=== PATIENT | female | born 1960 | race Hispanic/Latino ===

== ENCOUNTER 2021-03-13 12:54 | Outpatient (CLI) | payer BC, SELFPAY ==
--- NOTE | ~2021-03-13 | XR_ITS ---
XR shoulder RT min 2V 03/13/2021 13:33 Indication: Right shoulder pain Procedure: 4 views right shoulder Comparison: No prior studies for comparison. Findings: There is anatomic alignment. No fracture or traumatic malalignment. No significant soft tis smooth abnormality. No foreign bodies. Impression: 1: No significant bone or joint abnormality. Reviewed, dictated and finalized at location B. ER CONTROL ROOM OPERATOR Impression: 1: No significant bone or joint abnormality.
[2021-03-13 13:37] LABS: Add Urine Microscopic? NO; Appearance Urine Clear (Clear); Bilirubin Urine Negative (Negative); Blood Urine Negative (Negative); Color Urine Straw (Yellow); Glucose Urine UA Negative (Negative); Ketones Urine Negative (Negative); Leukocyte Esterase Ur Negative LEU/UL (Negative); Nitrate Urine Negative (Negative); Protein Urine Negative (Negative); Specific Grav Ur 1.005 (1.001-1.035); Urobilinogen Urine Negative mg/dL (<2.0)
== END 2021-03-13 12:55 | disposition home or self-care (01) ==
PROVIDERS: PCP Nurse Practitioner Family; Visit Provider Nurse Practitioner Family
DX: M25.512 Pain in left shoulder (principal); R32 Unspecified urinary incontinence; Z13.0 Encounter for screening for diseases of the blood and blood-forming organs and certain disorders involving the immune mechanism; Z13.1 Encounter for screening for diabetes mellitus; Z13.29 Encounter for screening for other suspected endocrine disorder; Z13.220 Encounter for screening for lipoid disorders
CPT/HCPCS: 73030; 81003

== ENCOUNTER 2021-06-03 08:46 | Outpatient (CLI) | payer BC, SELFPAY ==
--- NOTE | 2021-06-03 11:15 | NEURO_ITS ---
Impression: # Complains of paresthesia of lower extremities. # Normal nerve conduction study including F-waves. # Normal needle/EMG exam. # Clinical correlation recommended. Nerve Conduction Studies Anti Sensory Summary Table Stim Site NR Peak (ms) P-T Amp (?V) Site1 Site2 Delta-P (ms) Dist (cm) Adalberto (m/s) Left Sup Fibular Anti Sensory (Ant Lat Mall) 14 cm 3.0 20.2 14 cm Ant Lat Mall 3.0 16.0 53 Right Sup Fibular Anti Sensory (Ant Lat Mall) 14 cm 3.1 12.0 14 cm Ant Lat Mall 3.1 16.0 52 Left Sural Anti Sensory (Lat Mall) Calf 3.7 18.3 Calf Lat Mall 3.7 16.0 43 Right Sural Anti Sensory (Lat Mall) Calf 3.7 6.5 Calf Lat Mall 3.7 16.0 43 Motor Summary Table Stim Site NR Onset (ms) O-P Amp (mV) Site1 Site2 Delta-0 (ms) Dist (cm) Adalberto (m/s) Left Peroneal Motor (Vastus Med) Ankle 4.3 3.0 Popit Ankle 8.2 40.0 49 Popit 12.5 3.0 Right Peroneal Motor (Vastus Med) Ankle 4.1 3.6 Popit Ankle 7.8 39.0 50 Popit 11.9 3.3 Left Tibial Motor (Abd Clarke Brev) Ankle 4.8 4.5 Knee Ankle 8.3 40.0 48 Knee 13.1 3.4 Right Tibial Motor (Abd Clarke Brev) Ankle 4.5 9.4 Knee Ankle 8.7 41.0 47 Knee 13.2 6.6 F Wave Studies NR F-Lat (ms) L-R F-Lat (ms) Left Peroneal (Mrkrs) (EDB) 47.15 1.24 Right Peroneal (Mrkrs) (EDB) 45.91 1.24 Left Tibial (Mrkrs) (Abd Hallucis) 47.90 0.16 Right Tibial (Mrkrs) (Abd Hallucis) 47.74 0.16 EMG Side Muscle Nerve Root Ins Act Fibs Amp Dur Recrt Comment Right AntTibialis Dp Br Fibular L4-5 Nml Nml Nml Nml Nml Right Gastroc Tibial S1-2 Nml Nml Nml Nml Nml Right Fibularis Long Sup Br Fibular L5-S1 Nml Nml Nml Nml Nml Right Flex Dig Long Tibial L5-S2 Nml Nml Nml Nml Nml Right Ext Dig Brev Dp Br Fibular L5, S1 Nml Nml Nml Nml Nml Left AntTibialis Dp Br Fibular L4-5 Nml Nml Nml Nml Nml Left Gastroc Tibial S1-2 Nml Nml Nml Nml Nml Left Fibularis Long Sup Br Fibular L5-S1 Nml Nml Nml Nml Nml Left Flex Dig Long Tibial L5-S2 Nml Nml Nml Nml Nml Left Ext Dig Brev Dp Br Fibular L5, S1 Nml Nml Nml Nml Nml MTDD
== END 2021-06-03 08:47 | disposition home or self-care (01) ==
LOC: ANHNEURO 08:47
PROVIDERS: PCP Nurse Practitioner Family; Visit Provider Nurse Practitioner Family
DX: R20.2 Paresthesia of skin (principal)
CPT/HCPCS: 95886; 95910

== ENCOUNTER 2024-11-19 12:02 | Emergency (ER) | payer MEDICARE, MEDICAID, SELFPAY ==
[2024-11-19] VITALS (8 sets, daily range): BP systolic 157–221; BP diastolic 95–127; PULSE 70–84; RESP 12–16; TEMP 36.4; O2SAT 100
--- NOTE | ~2024-11-19 | XR_ITS ---
Examination: XR chest 2V Clinical History: chest pain, ELEVATED BP, Comparison: None Technique: PA and Lateral Findings: Cardiomediastinal silhouette normal size and configuration. Lungs clear. Hyperinflation. No acute bony abnormality. IMPRESSION: 1. No acute cardiopulmonary findings. Reviewed, dictated and finalized at location R.
--- NOTE | 2024-11-19 12:50 | ECG_ITS ---
Test Date: 2024-11-19 12:54:10 Measurements Intervals [place] Rate: 67 P: 57 NV: 154 QRS: -9 QRSD: 90 T: 36 QT: 389 QTc: 412 Interpretive Statements SINUS RHYTHM POSSIBLE LEFT ATRIAL ENLARGEMENT INCOMPLETE RIGHT BUNDLE BRANCH BLOCK BORDERLINE ECG No previous ECG available for comparison Electronically Signed On 11-19-2024 16:17:40 CDT by Waldo Stewart D.O.
[2024-11-19 13:07] LABS: Hematocrit 42.4 % (37.0-47.0); Hemoglobin 13.9 g/dL (12.0-15.0); Immature Granulocyte Percent A 0.0 % (0-0.5); Lymphocytes Absolute Auto 1.20 K/mm3 (0.9-3.2); Mean Corpuscular HGB Conc 32.8 g/dl (32-36); Mean Corpuscular Hemoglobin 31.7 pg (26-34); Mean Corpuscular Volume 96.6 fl (80-100); Nucleated Red Blood Cells Absolute Auto 0.000 K/mm3 (0.0-0.012); Nucleated Red Blood Cells Perc 0.0 % (0.0-0.2); Platelet Count Result 227 k/mm3 (150-375); Red Blood Count 4.39 M/mm3 (4.2-5.4); White Blood Count 3.2 K/mm3 (4.5-10.0)
--- OUTSIDE RECORDS SUMMARY | 2024-11-19 13:14 | XMS_ITS | Data Portability ---
Author Organization [facility] Cerrato SIBenito Vergara Address [address] [facility] [place] [place] [address] Assessment Encounter Date Assessment Date Assessment LastModified by Organization Details LastModified Time 11/19/2024 11/19/2024 --- Investigations/Di agnostic Tests: None Assessment / Plan 1. HYPERTENSIVE URGENCY/EMERGENCY Status:Acute, unstable, and high-risk condition. Patient presents with severely elevated blood pressure (210/122 mmHg) and associated end-organ symptoms including chest pain, shortness of breath, new-onset speech changes, and sensory changes with abdominal palpation. This represents a significant risk for stroke or other major adverse cardiovascular events. Summary:Patient is establishing care and found to have markedly elevated BP. Hx of HTN, non-adherent with lisinopril (stopped 8-10 years ago due to side effects). Exam notable for wheezing, an abnormal heart sound, strong abdominal pulsation, and tenderness. Abdominal palpation provoked neurological symptoms (tingling). Plan: - Strongly advised patient to go to the Emergency Room immediately for hypertensive urgency/emergency workup. Discussed risks, including stroke. - Wrote down hypertensive urgency and possible kidney infection for patient to provide to ER staff. - If patient declines ER, backup plan includes: - Labs to check thyroid function, kidney function, and liver function. - Referral to Cardiology for evaluation, including a heart ultrasound. - Order for an ultrasound of the abdominal arteries. 2. ABNORMAL HEART SOUNDS/CHEST PAIN Status:Chronic, unclear stability, high-risk problem. Patient reports chest pain at night and has an irregular heartbeat on exam. History of very high cholesterol. This is concerning for underlying cardiac pathology, including valvular disease or ischemic heart disease, exacerbated by severe hypertension. Summary:Patient reports chest pain at night and SOB with exertion. Exam reveals an irregular heartbeat. She had a normal heart ultrasound over a decade ago. Given her severe HTN and history of high cholesterol, this requires urgent evaluation. Plan: - Immediate ER evaluation is the primary recommendation to rule out acute cardiac events. - If patient declines, an urgent Cardiology referral is planned for an EKG and echocardiogram to evaluate the abnormal heart sounds and chest pain. 3. NOCTURIA/POSSIBLE KIDNEY INFECTION Status:Chronic, worsening problem of unclear complexity. Patient reports nocturia (3x/night) for nearly a year, along with urgency. Exam shows suprapubic tenderness and associated chills are reported. This is concerning for a chronic or sxjmk-ul-drylact urinary tract or kidney issue, which may be a cause or consequence of her severe hypertension. Summary:Ongoing nocturia for ~10 months. Now with suprapubic tenderness on exam and reports of chills. No burning reported. This is suspicious for a UTI or pyelonephritis. Plan: - Advised ER evaluation for workup, which would include urinalysis and kidney function tests. - If not going to ER, will order basic labs including kidney function tests. Health Maintenance - Colorectal Cancer Screening: due - Mammogram: due - Bone Density Scan: due - Immunizations: review and update at next visit - Hypertension: quality measure - blood pressure control. Plan: urgent evaluation and treatment initiation. - High Cholesterol: quality measure - statin therapy. Plan: address after acute issues stabilized. - Diabetes: quality measure - A1c check. Plan: order labs. - Medication list and allergies reviewed and updated TASK LIST 1. ER: Refer to ER for hypertensive urgency, possible kidney infection, and cardiac workup. 2. Cardiology: Place referral to Cardiology if patient declines ER. 3. Labs: Order for TSH, CMP, CBC, Lipids, Urinalysis if patient declines ER. 4. Imaging: Order for renal/retroperito keri ultrasound, abdominal aorta ultrasound, and echocardiogram if patient declines ER. My total encounter time was 50min for this new patient which was spent in the activities documented in the note. This includes time spent prior to the visit and after the visit in direct care of the patient including reviewing labs,all pertaining outside records seeing the patient, ordering labs, coordinating care and documenting in the records This time does not include time spent in any separately reportable services. Thus billing [id number] ( 45-59 minutes) [email or web address] Not available 11/19/2024 13:10:13 Plan of Treatment Reminders Order Date Submit Date Provider Last Modified By Organization Details Last Modified Time Details Appointments NEW PATIENT 30 2024 10:30A M Griselda Roque MD Not available Not available Not available Lab None recorded . Referral None recorded . Procedures None recorded . Surgeries None recorded . Imaging None recorded . Medication Orders None recorded . Patient TargetsNo targets recorded. Patient InstructionsNo instructions recorded. Reason for Referral None Reported. Problems Name Problem SNOMED Code Status Onset Date Resolution Date Notes Provider Name and Address Organization Details Recorded Time Hypertensive urgency 743916524 Active 2024 Griselda Roque MD Attn: Trinity dexter,[address] [place], [place], [address] [place] [address] 2, [facility] 5 12:45:01 Pyelonephritis 61476821 Active 2024 Griselda Roque MD Attn: Trinity dexter,[address] [place], [place], [address] [place] [address] 2, [facility] 5 12:45:08 Chest pain 70885330 Active 2024 Griselda Roque MD Attn: Trinity dexter,[address] [place], [place], [address] [place] [address] 2, [facility] 5 12:45:58 Dyspnea on exertion 71405661 Active 2024 Griselda Roque MD Attn: Trinity renteria,[address] [place], [place], [address] [place] [address] 2, [facility] 5 12:46:10 Problem Notes None recorded. Medical Equipment None Reported. Allergies No known drug allergies Vitals Date Recorded Body height Body mass index (BMI) Body weight Body temperature Heart rate Systolic And Diastolic Provider Name and Address Organization Details Last Updated DateTime 162.56 cm 19.9 kg/m2 84493.7 1 g 97.5 [degF] 63 /min 203/122 mm[Hg] Bettie Alexander MA [facility] 11:30:45 Social History Question Answer Notes LastModified by Organizat ion Details LastModified Time Tobacco Smoking Status Never Smoker Bettie Alexander MA [facility] [place] [facility] 11/19/2024 11:28:40 What Was The Date Of Your Most Recent Tobacco Screening? 11/19/2024 Information not available 11/19/2024 Sex: Female Functional Status Question Answer Note LastModified by Organization D etails LastModified Time Do you or have you ever used any other forms of tobacco or nicotine? No Information not available 11/19/2024 Mental Status None recorded. Family History Nothing Reported. Medical History No medical history recorded. Gynecological HistoryNo gynecological history recorded. Obstetrics History GPAL:G 0 P 0 0 0 0 Immunizations Vaccine Type Date Status Note Provider Nam e and Address Organization Details Recorded Time COVID-19 vaccine, vector-nr, rS-Ad26, PF, 0.5 mL 05/16/2020 completed Not Available [facility] 11:22:58 Past Encounters Encounter ID Performer Location Encounter Start Date Encounter Closed Date Diagnosis/Indication Diagnosis SNOMED-CT Code Diagnosis ICD10 Code Diagnosis IMO Codes Diagnosis Note [id number] MD Lynne Nieves FP ([address]) [address] [place] [address] 11/19/2024 11:18:47 11/19/2024 13:10:20 Hypertensive urgency 763301621 I16.0 1115545 Pyelonephritis 25346564 N12 63542 Chest pain 13362247 R07. 89 09946 Dyspnea on exertion 6084 5006 R06.09 456793 Health Concerns Section Related Observation LastModified by Organization Detai ls LastModified Time None Recorded Concern Status LastModified by Organization Details LastModified Time None Recorded Advance Directives Directive None Recorded Payers Insurance Date Sequence Insurance Name Policy Number Policy Savage Covered Member ID Savage Member ID Guarantor Name 11/19/2024 2 [place] Vicky Mckeon [id number] Vicky Mckeon 11/19/2024 1 [place] DEPARTMENT [place] PUBLIC AID Vicky Mckeon [id number] Vicky Mckeon 11/19/2024 1 [facility] [facility] PRIOR TO 09/14/2024 (MEDICAID REPLACEMENT - HMO) [id number] Vicky Mckeon [id number] Vicky Mckeon Notes Date Note Type Note Provider Name and Address Organization Details Recorded Time 5 text/html Background-Personal & LeisureBelieves there is only one race under one God. Identifies as Presybeterian. Actively tries to practice and promote this belief daily, which she feels is her duty.-Home/Family/Relati onshipsHas a daughter and her family in the area, including one grandchild.-Education/Fi nanceLifestyle-Diet and Exercise/Daily ActivitiesHad coffee and toast this morning.- Alcohol/Caffiene/Substan ce Use/HabitsHad 10 ounces of coffee before the appointment. Denies history of smoking or marijuana use.History of Presenting Illness:Patient is a female here for establishing care. Main concerns are markedly elevated blood pressure and related symptoms.HYPERTENSIONNori shields has a history of high blood pressure and was previously on medication (lisinopril) about 8-10 years ago. She stopped the medication because it made her feel fuzzy and zoned out. She reports a history of stress at that time. She owns a home blood pressure machine but has not used it in a while. When she did use it, readings were around 125/79. She had 10 oz of coffee prior to today's visit. Today's BP readings were extremely high (210/122 and 200/118). She reports occasional dull headaches that resolve.NOCTURIAReports urinating 3 times per night. This has been ongoing for about 10 months to a year. Reports urinary urgency but no burning. She has chills, especially in the left leg at night.CHEST PAINReports chest pain, especially at night. Denies chest pain with exertion like going up stairs.SHORTNESS OF BREATHReports some shortness of breath when going up one flight of stairs.OTHER SYMPTOMSReports increased puffiness under her eyes for the last 6 months. Notes a tingling sensation in her left hand and left ear during the abdominal exam. Reports some speech changes with stammering, which is new for her. Reports some noise on the right side and hears it on the left. Reports left-sided back pain.History obtained via Chart Review:Prior Office Visits:None on record. New patient.Prior Pertinent Chart Info/Hospitalizations- History of high cholesterol.- Had a heart ultrasound over a decade ago, reportedly with no abnormalities found.PMH, PSH, MEDS, ALLERGIES, SH, and FH - Information reviewed with patient and in EMR, with changes made where appropriate.. Griselda Roque MD Attn: Accounting,[address] [place], [address], [facility] 11/19/2024 13:10:47 OBGyn Episode No OBEpisode recorded.
--- OUTSIDE RECORDS SUMMARY | 2024-11-19 13:14 | XMS_ITS | Continuity of Care Document ---
Author Organization [facility] - SINikko TOLBERT ([address]) Address [address] [place] [address] Assessment Encounter Date Assessment Date Assessment LastModified [...] This is concerning for a chronic or fpegg-lo-zhktkku urinary tract or kidney issue, which may [...] in any separately reportable services. Thus billing [id number] ( 45-59 minutes) [email or web address] Not available 11/19/2024 [...] Address Organization Details Recorded Time Hypertensive urgency 055974144 Active 2024 Griselda Roque MD Attn: Trinity renteria,[address] [place], [place], [address] [place] [address] 2, [facility] SI 12:45:01 Pyelonephritis 35894041 Active 2024 Griselda Roque MD Attn: Trinity renteria,[address] [place], [place], [address] [place] [address] 2, [facility] 5 12:45:08 Chest pain 80481643 Active 2024 Griselda Roque MD Attn: Trinity renteria,[address] [place], [place], [address] [place] [address] 2, [facility] 5 12:45:58 Dyspnea on exertion 10460269 Active 2024 Griselda Roque MD Attn: Trinity renteria,[address] [place], [address], [facility] 12:46:10 Problem Notes None recorded. Medical Equipment None Reported. Allergies No known drug allergies Vitals Date Recorded Body height Body mass index (BMI) Body weight Body temperature Heart rate Systolic And Diastolic Provider Name and Address Organization Details Last Updated DateTime 162.56 cm 19.9 kg/m2 12325.7 1 g 97.5 [degF] 63 /min 203/122 mm[Hg] Bettie Alexander MA [place] - [facility] 11:30:45 Social History Question Answer Notes LastModified by Organizat ion Details LastModified Time Tobacco Smoking Status Never Smoker Bettie Alexander MA [facility] [place] [facility] 11/19/2024 11:28:40 What Was The Date Of [...] PF, 0.5 mL 05/16/2020 completed Not Available [facility] 11:22:58 Past Encounters Encounter ID Performer Location Encounter Start Date Encounter Closed Date Diagnosis/Indication Diagnosis SNOMED-CT Code Diagnosis ICD10 Code Diagnosis IMO Codes Diagnosis Note [id number] MD Lynne Nieves FP ([address]) [address] [place] [address] 11/19/2024 11:18:47 11/19/2024 13:10:20 Hypertensive urgency 949331585 I16.0 7731445 Pyelonephritis 16347428 N12 07128 Chest pain 79474072 R07. 89 04980 Dyspnea on exertion 6084 5006 R06.09 265813 Health Concerns Section Related Observation LastModified by Organization Detai ls LastModified Time None Recorded Concern Status LastModified by Organization Details LastModified Time None Recorded Payers Encounter Date Sequence Insurance Name Policy Number Policy Savage Covered Member ID Savage Member ID Guarantor Name 11/19/2024 1 [place]: [place] DEPARTMENT OF PUBLIC AID Vicky Mckeon [id number] Vicky Mckeno 11/19/2024 2 [place] Vicky Mckeon [id number] Vicky Mckeon Notes Date Note Type Note Provider Name and Address Organization Details Recorded Time 10/06/202 5 text/html Background-Personal & LeisureBelieves there is only one race under one God. Identifies as Scientology. Actively tries to practice and promote this [...] appropriate.. Griselda Roque MD Attn: Accounting,[address] [facility], [place], [address], [facility] 11/19/2024 13:10:47 OBGyn Episode No OBEpisode recorded.
[2024-11-19 13:18] LABS: INR 0.9; Prothrombin Time 12.7 Seconds (11.1-14.7)
[2024-11-19 13:19] LABS: Partial Thromboplastin Time 35.6 Seconds (22.3-36.8)
[2024-11-19 13:25] LABS: Alanine Aminotransferase 21 U/L (6-35); Albumin Level 4.4 g/dL (3.5-5.1); Alkaline Phosphatase 84 U/L (38-126); Anion Gap 7 mmol/L (4-12); Aspartate Amino Transferase 33 U/L (14-36); Bilirubin,Total 0.6 mg/dL (0.2-1.3); Blood Urea Nitrogen 10 mg/dL (7-17); Calcium 9.1 mg/dL (8.4-10.2); Carbon Dioxide 26 mmol/L (22-30); Chloride 106 mmol/L (98-107); Estimated CRCL calculation 51 ml/min; Estimated Glomerular Filt Rate > 60; Glucose 88 mg/dL (65-110); Lipase 76 U/L (23-300); Potassium 3.8 mmol/L (3.4-5.0); Sodium 139 mmol/L (137-145); Total Protein 8.5 g/dL (6.3-8.2)
[2024-11-19 13:32] LABS: Troponin I < 0.012 ng/mL (0.000-0.034)
[2024-11-19] MEDS: ASPIRIN 81 MG CHEWABLE TABLET 324 MG PO (13:42)
--- OUTSIDE RECORDS SUMMARY | 2024-11-19 14:53 | XMS_ITS | Data Portability ---
Author Organization [facility] [employer], Main Office Address [address] [place] [address] Assessment No assessment recorded. Plan of Treatment Reminders Order Date Submit Date Provider Last Modified By Organization Details Last Modified Time Details Appointments None recorded. Lab urinalysis, dipstick 2022 023 [facility] [address], [place], [address], 3 10:07:51 Referral physical therapist referral - *Please call pt to schedule* 2022 023 [email or web address] 256 [facility], [address], [place], [address], 4 08:48:42 Procedures None recorded. Surgeries None recorded. Imaging CT, abdomen + pelvis, w/o contrast - abdominal pain/left plank pain *Please call pt to schedule* 2023 024 [facility] (Imaging), [address] [place], [address], 4 14:04:17 MRI, thoracolumb ar spine, w/o contrast - *Please call pt to schedule* 2022 023 [email or web address] 256 [facility], [address] [place] [address] , [place], [address], 4 09:26:54 Medication Orders None recorded. Patient TargetsNo targets recorded. Patient InstructionsNo instructions recorded. Reason for Referral Physical Therapist Referral for Chronic low back pain thoracic, lumbar pain *Please call pt to schedule* Referring Physician: Samson Baltazar, Family Medicine, Encounter Date: 02/11/2023 Results Created Date Observation Date Name Description Value Unit Range Abnormal Flag Note LastModifiedBy Organization Detail LastModifiedTime 04/08/19 24 04/08/2023 urina lysis , dipst ick Leukocytes (reference range: negative deanna/ l) Negati ve Not Available [address], [place], [address], 02/11/2023 09:53:09 04/08/19 24 04/08/2023 urina lysis , dipst ick Nitrite (reference rage: negative mg/dl) negati ve Not Available [address], [place], [address], 02/11/2023 09:53:09 04/08/19 24 04/08/2023 urina lysis , dipst ick Urobilinogen (reference range: 0.2-1 mg/dl) 0.2 Not Available [address], [place], [address], 02/11/2023 09:53:09 04/08/19 24 04/08/2023 urina lysis , dipst ick Protein (reference range: negative mg/dl) Negati ve Not Available [address], [place], [address], 02/11/2023 09:53:09 04/08/19 24 04/08/2023 urina lysis , dipst ick pH (reference range: 5-7) 7.5 Not Available [address], [place], [address], 02/11/2023 09:53:09 04/08/19 24 04/08/2023 urina lysis , dipst ick Blood (reference range: negative Joshua/ l) Negati ve Not Available [address], [place], [address], 02/11/2023 09:53:09 04/08/19 24 04/08/2023 urina lysis , dipst ick Specific [place] (reference range: 1.005-1.030) 1.020 Not Available [address], [place], [address], 02/11/2023 09:53:09 04/08/19 24 04/08/2023 urina lysis , dipst ick Ketone (reference range: negative mg/dl) Negati ve Not Available [address], [place], [address], 02/11/2023 09:53:09 04/08/19 24 04/08/2023 urina lysis , dipst ick Bilirubin (reference range: negative mg/dl) Negati ve Not Available [address], [place], [address], 02/11/2023 09:53:09 04/08/19 24 04/08/2023 urina lysis , dipst ick Glucose (reference range: negative mg/dl) Negati ve Not Available [address], [place], [address], 02/11/2023 09:53:09 04/08/19 24 04/08/2023 urina lysis , dipst ick Appearance Clear Not Available [address], [place], [address], 02/11/2023 09:53:09 04/08/19 24 04/08/2023 urina lysis , dipst ick Color Yellow Not Available [address], [place], [address], 02/11/2023 09:53:09 04/03/19 22 04/03/2021 US, pelvi s, trans abdom inal + trans vagin al [facility] [address] [place] [address] [facility] Name: JASWANT MCKEON Access ion #: [id number] Sex: F : 1960 3 9 Locati on: Attend ing Physic mat: ALEXUS MARCANO Orderi ng Physic mat: ALEXUS MARCANO Exam Date: 12:10 PM Exam Name: US PELVIS NON OB TRANSV AGINAL Admitt ing Diagno sis(es ): RADIOL OGY REPORT - FINAL EXAM: US PELVIS NON OB TRANSV AGINAL HISTOR Y: pelvic pain COMPAR RANI: None availa ble. TECHNI QUE: Transv aginal and transa bdomin al pelvic ultras ound was perfor med. FINDIN GS: Uterus : The uterus measur es 5.4 x 3.2 x 3.8 cm. The myomet rial echo appear ance ismild ly inhomo genous . The endome trium measur es 0.93 mm in thickn ess. Right ovary: The right ovary is not visual ized correl ate with surgic al histor y, the uterus may be the displa cing the ovary from the field of view, Page 1 of 2 [facility] JASWANT MCKEON Access ion #: [id number] Sex: F : 1960 3 9 Exam Date: 12:10 PM Exam Name: US PELVIS NON OB TRANSV AGINAL Admitt ing Diagno sis(es ): this area may be obscur ed by bowel gas. Left ovary: The left ovary measur es 1.5 x 0.8 x 0.7 cm. The left ovary demons trates a 0.54 x 0.59 x 0.55 cm simple cyst is otherw ise normal in appear ance and demons trates normal color Dopple r blood flow. Cul-de -sac: No free fluid. IMPRES RICKI: See above. Create d and electr onical ly signed by: Shay leigh MD Signed Date: 2:55 PM (CT) Dictat ed by: Shay leigh MD DD: 2:55 PM (CT) DT: 2:55 PM (CT) Page 2 of 2 [id number] [facility] (Imaging) [address] [place], [address], 04/15/2022 00:29:29 04/03/19 22 04/03/2021 DEXA, axial skele ton [facility] [address] [facility] [address], [place] [address] Patien t Name: JASWANT MCKEON Access ion #: [id number] Sex: F : 1960 3 9 Locati on: MOP Attend ing Physic mat: ALEXUS [facility]ARCANO [facility]: ALEXUS MARCANO Exam Date: 1:09 PM Exam Name: XR DEXA-H IPS PELVIS SPINE Admitt ing Diagno sis(es ): RADIOL OGY REPORT - FINAL EXAM: XR DEXA-H IPS PELVIS SPINE HISTOR Y: OSTEOP OROSIS COMPAR RANI: None. TECHNI QUE: TECHNI QUE: Dual energy x-ray of absorp tion examin ation of the bilate ral hips and lumbar spine in AP projec tion was perfor med. FINDIN GS: Lumbar Spine (L1-L4 ): The mean bone minera l densit y is 0.981 g/cm2 hydrox yapati te, correl ating with a T-scor e of -1.7. Bilate ral hips: The mean bone minera l densit y is 0.702 g/cm2 calciu m hydrox yapati te, correl ating with a T-scor e of -2.4. Page 1 of 2 [facility] Mamta t Name: JASWANT MCKEON Access ion #: [id number] Sex: F : 1960 3 9 Exam Date: 1:09 PM Exam Name: XR DEXA-H IPS PELVIS SPINE Admitt ing Diagno sis(es ): IMPRES RICKI: 1. The patien t's lumbar spine T-scor e is consis tent with osteop enia. 2. The patien t's bilate ral hip T-scor e is consis tent with severe osteop enia. Accord ing to the World Health Organi zation , T-scor e values greate r than -1.0 are normal , values betwee n -1.0 and -2.5 are catego rized as osteop enia, T-scor e of -2.5 or more are catego rized as osteop orosis . Create d and electr onical ly signed by: Shay leigh MD Signed Date: 3:34 PM (CT) Dictat ed by: Shay liegh MD DD: 3:34 PM (CT) DT: 3:34 PM (CT) Page 2 of 2 [id number] [facility] (Imaging) [address] [place], [address], 04/15/2022 00:29:29 04/03/19 22 04/03/2021 scree arun breas t jessica, bilat [facility] [address] [place] [address] Mamta beckman Name: JASWANT MCKEON Access ion #: [id number] Sex: F : 1960 3 9 Locati on: MOP Attend ing Physic mat: ALEXUS MARCANO Orderi Physic mat: ALEXUS MARCANO Exam Date: 1:09 PM Exam Name: MG SCRN BREAST JESSICA BILAT Admitt ing Diagno sis(es ): MAMMOG ZOHRA REPORT - FINAL EXAM: SCRN BREAST JESSICA BILAT HISTOR Y: SCREEN ING mammog tayo. COMPAR RANI: Baseli ne. TECHNI QUE: Bilate ral CC and MLO views of the breast s were perfor med. Digita l Mammog zohra images were obtain ed. CAD (compu ter assist ed detect ion) was utiliz ed. 3D Digita l breast tomosy nthesi s was perfor med and used in the interp retati on of images . FINDIN GS: The breast s are extrem tiffanie dense, which lowers the sensit ivity of mammog zohra. No masses , asymme tries, suspic ious calcif icatio ns, or bryan ectura l Page 1 of 2 [facility] Mamta beckman Name: JASWANT MCKEON Access ion #: [id number] Sex: F : 1960 3 9 Exam Date: 022 1:09 PM Exam Name: MG RAIN BREAST JESSICA BILAT Admitt ing Diagno sis(es ): distor tion are seen. IMPRES RICKI: BIRADS 1: Assess ment comple te. Negati ve. Recomm end annual screen ing mammog zohra. Accord ing to the [employer] o[employer], yearly mammog julia are recomm ended starti ng at age 40 and contin uing as long as the woman is in good health . Clinic al Breast Exam should be part of the period health exam-a bout every 3 years for women in their 20s and 30s and every year for women 40 and over. Breast self-e xam is an option for women in their 20s. Any breast change noted on the breast self-e xam she would be report ed prompt ly to the [facility]. A negati ve mammog zohra report should not discou rage follow -up or biopsy of a clinic ally signif icant findin g and/or abnorm ality. Dense breast tissue may obscur e small neopla sms. This mamta beckman has been entere d into a mammog zohra remind er system with a target date for her next mammog tayo. Create d and electr onical ly signed by: Shay leigh MD Signed Date: 4:17 PM (CT) Dictat ed by: Shay leigh MD DD: 4:17 PM (CT) DT: 4:17 PM (CT) Page 2 of 2 [id number] [facility] (Imaging) [address] [place], [address], 04/15/2022 00:29:29 04/03/19 22 04/03/2021 US, abdom en + pelvi s [facility] [address] [facility] [place] [address] [phone] Patien t Name: REJI MCKEONBOLIVAR Norton Access ion #: [id number] Sex: F : 1960 3 9 Locati on: Attend ing Physic mat: ALEXUS MARCANO LE Orderi Physic mat: ALEXUS MARCANO Exam Date: 12:09 PM Exam Name: US ABDOME N MULTIP LE ORGANS Admitt ing Diagno sis(es ): RADIOL OGY REPORT - FINAL EXAM: US ABDOME N MULTIP LE ORGANS HISTOR Y: abd pain COMPAR RANI: None. TECHNI QUE: Comple te abdomi nal ultras ound was perfor med. FINDIN GS: No gallst ones, gallbl adder wall thicke arun, or perich olecys tic free fluid. The gallbl adder wall dimens ions by 1.7 mm, normal . The patien t was not tender to transd ucer pressu re over the gallbl adder. No intrah epatic biliar y ductal dilata tion or liver mass. Page 1 of 2 [facility] Patien t Name: REJI MCKEONBOLIVAR John Access ion #: [id number] Sex: F : 1960 3 9 Exam Date: 12:09 PM Exam Name: US ABDOME N MULTIP LE ORGANS Admitt ing Diagno sis(es ): There is hepato petal portal venous color Dopple r flow. The common duct measur es 1.2mm in diamet er. The partia lly visual ized pancre as is unrema rkable . The intrah epatic portio n of the IVC is patent . No upper abdomi nal aortic ectasi a. The right kidney measur es 9.9 x 4.3 x 4.5 cm in length and is normal in appear ance. The left kidney measur es 9.8 x 5.2 x 3.9 cm in length and is normal in appear ance. The spleen is normal in size. IMPRES RICKI: Unrema rkable abdomi nal ultras ound. Create d and electr onical ly signed by: Sahy leigh MD Signed Date: 2:53 PM (CT) Dictat ed by: Shay leigh MD DD: 2:53 PM (CT) DT: 2:53 PM (CT) Page 2 of 2 [id number] [facility] (Imaging) [address] [place], [address], 04/15/2022 00:29:29 04/18/19 22 04/03/2021 US, duple x, arter ial, lower extre mity No observ ation record ed. [id number] [facility] [address] [place], [address], 04/15/2022 00:29:29 06/05/19 22 06/03/2021 nerve condu ction study /EMG, lower extre mity (PROC ) No observ ation record ed. [id number] [address] [place], [place], [address], 04/15/2022 00:29:29 05/13/19 24 05/13/2023 CT, abdom en + pelvi s, w/o contr ast No observ ation record ed. [email or web address] [facility] [address] [place], [address], 05/17/2023 14:51:16 Result Notes None recorded. Problems Name Problem SNOMED Code Status Onset Date Resolution Date Notes Provider Name and Address Organization Details Recorded Time Pain of right shoulder joint 3961438146201 9100 Active 2021 Not Available [facility] 3 00:28:07 Urinary incontinen ce 690150069 Active 2021 Not Available [facility] 3 00:28:07 Abdominal pain 21998647 Active 2021 Not Available [facility] 3 00:28:07 Essential hypertensi on 26019388 Active 2021 Not Available [facility] 3 00:28:07 Vitamin D deficiency 77103092 Active 2021 Not Available [facility] 3 00:28:07 Hyperlipid emia 07835029 Active 2021 Not Available [facility] 3 00:28:07 Low back pain 434617006 Active 2022 Samson Baltazar [employer] [employer] [facility] [address], [place], [address] , [facility] 3 09:44:25 Chronic low back pain 387503870 Active 2022 MEJIA [facility] [address], [address], [place], [address] , [facility] 3 09:44:41 Left flank pain 955426157 Active 2023 Samson Baltazar [facility] [employer] [address], [address], [place], [address] , [facility] 4 10:19:17 Problem Notes None recorded. Medical Equipment None Reported. Allergies No known drug allergies Medications Name Sig Start Date Stop Date Status Note LastModified by Organization Details LastModified Time losartan 50 mg tablet TAKE 1 TABLET BY MOUTH ONCE DAILY 07/21 completed Increased to 100 mg on 06/10/21 Not Available Not Available Not Available lisinopri l 20 mg tablet Take 1 tablet every day by oral route. active Not Available Not Available No t Available amlodipin e 5 mg tablet Take 1 tablet every day by oral route. 02/11 completed Not Available Not Available Not Available losartan 100 mg tablet TAKE 1 TABLET BY MOUTH ONCE DAILY 02/11 completed Not Available Not Available Not Available rosuvasta tin 5 mg tablet TAKE 1 TABLET BY MOUTH ONCE DAILY 02/11 completed Not Available Not Available Not Available Vitals Date Recorded Body mass index (BMI) Body height Oxygen saturation Oxygen saturation in Arterial blood by Pulse oximetry Heart rate Body temperature Body weight Systolic And Diastolic Provider Name and Address Organization Details Last Updated DateTime 2 20.1 kg/m2 163.83 cm 98 % 98 % 73 /min 97.6 [degF] 31766.4 9 g 142/100 mm[Hg] Not Available [facility] 3 00:27:48 Date Recorded Body height Body mass index (BMI) Body weight Body temperature Heart rate Oxygen saturation Oxygen saturation in Arterial blood by Pulse oximetry Systolic And Diastolic Provider Name and Address Organization Details Last Updated DateTime 4 163.83 cm 20.4 kg/m2 92606.6 8 g 99.3 [degF] 75 /min 100 % 100 % 156/100 mm[Hg] Halle Castro RN [place] - [facility] [place] [facility] [facility] 4 10:09:24 Date Recorded Body mass index (BMI) Body height Oxygen saturation Oxygen saturation in Arterial blood by Pulse oximetry Heart rate Body temperature Body weight Systolic And Diastolic Provider Name and Address Organization Details Last Updated DateTime 2 20.4 kg/m2 163.83 cm 97 % 97 % 69 /min 97.6 [degF] 61990.6 8 g 140/90 mm[Hg] Not Available [facility] 3 00:27:48 Date Recorded Body height Systolic And Diastolic Provider Name and Address Organization Details Last Updated DateTime 07/21/2021 163.83 cm 180/100 mm[Hg] Not Available [facility] 04/15/2022 00:27:48 Date Recorded Body weight Body mass index (BMI) Body height Body temperature Heart rate Oxygen saturation Oxygen saturation in Arterial blood by Pulse oximetry Systolic And Diastolic Provider Name and Address Organization Details Last Updated DateTime 3 44646.9 g 19.9 kg/m2 163.83 cm 97.4 [degF] 82 /min 98 % 98 % 168/100 mm[Hg] Lazara de los santos CMA [place] - [facility] 3 09:38:20 Social History Question Answer Notes LastModified by Organizat ion Details LastModified Time Tobacco Smoking Status Never Smoker Not Available [facility] 04/15/2022 00:26:59 Do You Wear A Helmet When Biking? No [id number] Information not available 04/15/2022 What Is Your Level Of Caffeine Consumption? Moderate [id number].[id number] 026 Information not available 04/15/2022 What Type Of Diet Are You Following? REGULAR [id number].[id number] 026 Information not available 04/15/2022 What Is The Highest Grade Or Level Of School You Have Completed Or The Highest Degree You Have Received? [id number] [id number].[id number] 026 Information not available 04/15/2022 Have There Been Any Changes To Your Family Or Social Situation? No [id number] 026 Information not available 04/15/2022 Where Do You Live? Apartment [id number] 026 Information not available 04/15/2022 Do You Have Any Pets? Yes [id number] 026 Information not available 04/15/2022 What Is Your Relationship Status? [id number] 026 Information not available 04/15/2022 Do You Use Your Seat Belt Or Car Seat Routinely? Yes [id number].[id number] 026 Information not available 04/15/2022 Do You Have Smoke And Carbon Monoxide Detectors In Your Home? Yes [id number].0964634 026 Information not available 04/15/2022 Are You Passively Exposed To Smoke? No MIGRATION.4919087 026 Information not available 04/15/2022 Are There Any Smokers In Your House? No MIGRATION.3263126 026 Information not available 04/15/2022 Do You Participate In Social Media? No [id number].3013033 026 Information not available 04/15/2022 Are You Currently In School? No [id number].[id number] 026 Information not available 04/15/2022 Do You Have Any Dietary Restrictions? No MIGRATION.0077804 026 Information not available 04/15/2022 Sex: Unknown Functional Status Question Answer Note LastModified by Organizat ion Details LastModified Time What is your level of alcohol consumption? None [id number] 26 Information not available 04/15/2022 What is your exercise level? Occasional [id number].[id number] 26 Information not available 04/15/2022 Mental Status Question Answer Note LastModified by Organizat ion Details LastModified Time Do you feel stressed (tense, restless, nervous, or anxious, or unable to sleep at night)? [id number] 6 Information not available 04/15/2022 Family History Relationship Description Onset Age of this Age Resolved Age Notes LastModified by Organization Details LastModified Time Father Heart disease and his 8 siblin gs [id number] Not available 04/15/2022 00:27:14 Maternal Grandmother Type 2 diabetes mellitus [id number] [id number] Not available 04/15/2022 00:27:14 Sister Type 2 diabetes mellitus [id number].264 [id number] Not available 04/15/2022 00:27:14 Sister Hypertensive disorder [id number] Not available 04/15/2022 00:27:14 Medical History Condition Response HEADACHES/MIGRAINES Y BLADDER PROBLEMS Y MUSCLE,JOINT OR BONE PROBLEMS Y HYPERTENSION Y Gynecological History Statement/Question Response Date of Last Colonoscopy Obstetrics History GPAL:G 3 P 3 0 0 3 Type Value Full Term 3 Living 3 Total 3 Past Encounters Encounter ID Performer Location Encounter Start Date Encounter Closed Date Diagnosis/Indication Diagnosis SNOMED-CT Code Diagnosis ICD10 Code Diagnosis IMO Codes Diagnosis Note [id number] Quan Bello MD [address] [address] 03/04/2021 00:00:00 03/04/2021 10:00:05 [id number] Quan Bello MD [facility] [address] [place] [address] 03/06/2021 00:00:00 03/06/2021 13:06:08 [id number] Quan Bello MD [address] [address] 03/20/2021 00:00:00 03/20/2021 12:02:13 [id number] Quan Bello MD [facility] [address] [place] [address] 04/17/2021 00:00:00 04/17/2021 12:54:39 [id number] Quan Bello MD [facility] [address] [place] [address] 06/10/2021 00:00:00 06/10/2021 15:32:21 [id number] Quan Bello MD [facility] [address] [place] [address] 07/21/2021 00:00:00 07/21/2021 18:36:[id number] Primary Care [facility] [address] [place] [address] 02/11/2023 09:29:27 02/11/2023 10:15:28 Chronic low back pain 117757963 M54.50 -has been an issue for approx 2 years-pain rated at 8/10 on average, constant-d oes not take any medication s for the pain-start ing to affect her sleep-ROM and strength are intact with pain-numbn ess and tingling noted to tadeo toes and below knees at times-note s some issues with urination (urgency), notes clear urine at times, oily/foamy at other times, no blood-note s dexa scan showed osteopenia -ruling out muscle strain vs kidney stone [id number] Sangita Alvarez MD [facility] [address] [facility] [place] [address] 04/29/2023 09:51:23 04/29/2023 12:57:11 Left flank pain 897099784 R10.9 -notes pain to left flank every day, started off in her left abdomen and later radiated-n otes occasional sharp pains that cause her to pause-no hx of kidney stones-no blood noted in recent UA-CT ordered Health Concerns Section Related Observation LastModified by Organization Lissy sadler LastModified Time None Recorded Concern Status LastModified by Organization Details LastModified Time None Recorded Advance Directives Directive None Recorded Payers Insurance Date Sequence Insurance Name Policy Number Policy Savage Covered Member ID Savage Member ID Guarantor Name 04/28/2023 1 [facility] PRIOR TO 09/14/2024 (MEDICAID REPLACEMENT - HMO) [id number] Vicky Mckeon [id number] Vicky Mckeon Notes Date Note Type Note Provider Name and Address Organization Details Recorded Time 02/11/2023 text/html Pt is a new patient looking to discuss back pain [facility]ENEDICT [facility] [address], [place], [address], As Seen on TV 02/11/2023 10:07:35 04/29/2023 text/html Pt is here for abd/flank pain MEJIA [facility] [address], [place], [address], [facility] 04/29/2023 12:55:14 OBGyn Episode No OBEpisode recorded.
--- NOTE | 2024-11-19 15:46 | ECG_ITS ---
Test Date: 2024-11-19 16:49:51 Measurements Intervals [place] Rate: 75 P: 62 [place]: 152 QRS: 12 QRSD: 97 T: 38 QT: 386 QTc: 433 Interpretive Statements SINUS RHYTHM POSSIBLE LEFT ATRIAL ENLARGEMENT INCOMPLETE RIGHT BUNDLE BRANCH BLOCK BORDERLINE ECG Compared to ECG 11/19/2024 12:54:10 NO SIGNIFICANT CHANGE Electronically Signed On 11-19-2024 19:24:11 CDT by Waldo Stewart D.O.
[2024-11-19 16:17] LABS: Troponin I < 0.012 ng/mL (0.000-0.034)
--- NOTE | 2024-11-19 17:38 | ED_ITS ---
HPI - Chest Pain General Chief Complaint: Chest Pain Stated Complaint: Elevated BP - urinary frequency-sent by PMD Time Seen by Provider: 11/19/24 12:45 Source: patient Mode of arrival: ambulatory Limitations: no limitations History of Present Illness HPI narrative: 64-year-old with a history of hypertension presents to the ER with a complains of midsternal chest pain which is been ongoing since last couple days. Patient saw her primary doctor earlier this morning and was later referred to the ER because of the high blood pressure. Patient is presently not on any medication. She denies any headache or blurred vision or shortness of breath. complaint: chest pain Onset (ago): day(s) Timing of current episode: constant Prior episodes: No Onset: during rest Pain location: substernal Pain radiation: none Risk Factors Coronary artery disease risk factors: none Thoracic aortic dissection risk factors: none Related Data Home Medications ?Medication ?Instructions ?Recorded ?Confirmed ?Last Taken ?Type losartan 100 mg tablet 100 mg PO DAILY 07/10/21 Un known History amlodipine 5 mg tablet 5 mg PO DAILY 07/22/21 Unkn own History Allergies Allergy/AdvReac Type Severity Reaction Status Date / Time No Known Allergies Allergy Verified 11/19/24 12:04 Review of Systems 2 Review of Systems: All systems reviewed & are unremarkable except as noted in HPI and below ROS unobtainable: Yes unobtainable due to endotracheal tube Eyes: Eyes: Reports no additional eye complaints ENT: Reports system reviewed and no additional complaints, except as documented Cardiovascular: Cardiovascular: Reports no additional cardiovascular complaints Respiratory: Respiratory: Reports no additional respiratory complaints Gastrointestinal: Gastrointestinal: Reports no additional gastrointestinal complaints Musculoskeletal: Musculoskeletal: Reports no additional musculoskeletal complaints PMFSH Past Medical History Medical History Abdominal pain Essential hypertension Hyperlipidemia Other specified polyneuropathies Pain in right shoulder Small fiber neuropathy Urinary incontinence Vitamin D deficiency Family History Family History Father Heart disease along with his 8 siblings Diabetes mellitus Grandparent Diabetes mellitus Sibling Diabetes mellitus Hypertension Social History Social History Social History: never smoker Smoking status: Never smoker Alcohol intake: never Exam 2 Narrative: GENERAL: Well-appearing, well-nourished, and in no acute distress. HEAD: Normocephalic, atraumatic. EYES: PERRLA and EOMI. ENT: Nares clear, no rhinorrhea or epistaxis. Mucous membranes moist. NECK: Supple. CHEST: Clear to auscultation. No respiratory distress. HEART: Regular rate and rhythm. No murmur heard. Normal peripheral pulses. ABDOMEN: Soft, nontender, nondistended, normal active bowel sounds. EXTREMITIES: Normal range of motion. No edema. SKIN: Warm, dry, no rash. NEURO: No focal deficits. Alert and oriented x3. PSYCH: Normal mood and affect. Course Course Emergency Course: Patient upon arrival had of very high blood pressure of 221/127 I did give her 10 mg of IV hydralazine which improved. I discussed lab work, EKG findings with the patient. Recommended her to follow with her primary doctor take medication as prescribed. Vital Signs Vital signs: Vital Signs Temperature 36.4 C L 11/19/24 12:07 Pulse Rate 84 11/19/24 12:07 Respiratory Rate 16 11/19/24 12:07 Blood Pressure 221/127 H 11/19/24 12:07 Pulse Oximetry 100 11/19/24 12:07 Oxygen Delivery Room Air 11/19/24 12:07 Temperature 36.4 C L 11/19/24 12:07 Pulse Rate 80 11/19/24 16:30 Respiratory Rate 16 11/19/24 16:30 Blood Pressure 161/97 H 11/19/24 16:30 Pulse Oximetry 100 11/19/24 16:30 Oxygen Delivery Room Air 11/19/24 13:15 MDM - Chest Pain Differential Diagnosis Differential diagnosis: Likely stable angina, unstable angina pectoris and st elevation myocardial infarction Medical Records Data Attestation: I reviewed the patient's medical records. Lab Data Attestation: I reviewed the patient's lab results. 11/19/24 13:02 11/19/24 13:02 Labs: Lab Results 11/19/24 11/19/24 Range/Units 13:02 15:48 WBC 3.2 L (4.5-10.0) K/mm3 RBC 4.39 (4.2-5.4) M/mm3 Hgb 13.9 (12.0-15.0) g/dL Hct 42.4 (37.0-47.0) % MCV 96.6 (80-100) fl MCH 31.7 (26-34) pg MCHC 32.8 (32-36) g/dl RDW 12.9 (11.5-14.5) % Plt Count 227 (150-375) k/mm3 MPV 9.7 (7.4-10.4) fl Immature Gran % (Auto) 0.0 (0-0.5) % Neut % (Auto) 50.1 (45.5-73.1) % Lymph % (Auto) 37.0 (18.3-44.2) % Clark % (Auto) 11.1 H (2.6-8.5) % Eos % (Auto) 0.9 (0-4.4) % Baso % (Auto) 0.9 (0.2-1.2) % Lymph # (Auto) 1.20 (0.9-3.2) K/mm3 Clark # (Auto) 0.4 (0.1-0.6) K/mm3 Eos # (Auto) 0.0 (0-0.3) K/mm3 Baso # (Auto) 0.0 (0.0-0.1) K/mm3 Abs Immat Gran (auto) 0.00 (0.00-0.031) K/mm3 Absolute Neuts (auto) 1.6 (1.3-6.7) K/mm3 Absolute Nucleated RBC 0.000 (0.0-0.012) K/mm3 Nucleated RBC % 0.0 (0.0-0.2) % PT 12.7 (11.1-14.7) Seconds INR 0.9 APTT 35.6 (22.3-36.8) Seconds Sodium 139 (137-145) mmol/L Potassium 3.8 (3.4-5.0) mmol/L Chloride 106 (98-107) mmol/L Carbon Dioxide 26 (22-30) mmol/L Anion Gap 7 (4-12) mmol/L BUN 10 (7-17) mg/dL Creatinine 0.78 (0.7-1.0) mg/dL Estim Creat Clear Calc 51 ml/min Estimated GFR > 60 (59 - ) Glucose 88 (65-110) mg/dL Calcium 9.1 (8.4-10.2) mg/dL Total Bilirubin 0.6 (0.2-1.3) mg/dL AST 33 (14-36) U/L ALT 21 (6-35) U/L Alkaline Phosphatase 84 (38-126) U/L Troponin I < 0.012 < 0.012 (0.000-0.034) ng/mL Total Protein 8.5 H (6.3-8.2) g/dL Albumin 4.4 (3.5-5.1) g/dL Lipase 76 (23-300) U/L Imaging Data Radiologist's impression: ITS Impressions Chest X-Ray 11/19/24 13:24 IMPRESSION: 1. No acute cardiopulmonary findings. ECG Data EKG #1: ECG completion date: 11/19/24 ECG completion time: 12:54 EKG Interpretation: normal rate (67), no ectopy, no ST changes, normal QRS and normal QT Discharge Plan Discharge Clinical Impression: Chest pain Qualifiers: Chest pain type: unspecified Qualified Code(s): R07.9 - Chest pain, unspecified Hypertension Qualifiers: Hypertension type: primary hypertension Qualified Code(s): I10 - Essential (primary) hypertension Patient Disposition: Home Condition: Stable Instructions: Chest Pain (ED), Hypertension (ED) Patient Language: Estonian Prescriptions: New amlodipine [Norvasc] 5 mg tablet 5 mg PO DAILY Qty: 30 0RF losartan 100 mg tablet 100 mg PO DAILY Qty: 30 0RF No Action losartan 100 mg tablet 100 mg PO DAILY amlodipine 5 mg tablet 5 mg PO DAILY Follow-up/Referrals: Mya,MD Griselda [Primary Care Provider, Unknown] Time of Disposition: 17:40
== END 2024-11-19 18:15 | disposition home or self-care (01) ==
PROVIDERS: Emergency Provider Family Medicine; PCP Internal Medicine
DX: R07.9 Chest pain, unspecified (principal); I10 Essential (primary) hypertension; E78.5 Hyperlipidemia, unspecified; E55.9 Vitamin D deficiency, unspecified; R32 Unspecified urinary incontinence; G62.89 Other specified polyneuropathies; I45.10 Unspecified right bundle-branch block; R94.31 Abnormal electrocardiogram [ECG] [EKG]
CPT/HCPCS: 36415; 71046; 80053; 83690; 84484; 85025; 85610; 85730; 93005; 96374; 99284; A9270; J0360